=== PATIENT | female | born 1935 | race Caucasian/White ===

== ENCOUNTER → 2020-09-28 | Outpatient (CLI) | payer MEDICARE ==
--- NOTE | 2020-09-28 11:17 | RAD ---
INDICATION: Reason: LT ARM SWELLING / Spl. Instructions: / History: COMPARISON: None. FINDINGS: Focused ultrasound images obtained of the left upper arm at the region of concern. No drainable fluid collection or subcutaneous mass is seen within the soft tissues. The artery and ve in are partially seen without occlusion. IMPRESSION: * No drainable fluid collection or mass is identified. Electronically signed by: Mario Humphreys MD (09/28/2020 11:15 AM) [id number]
== END ==
LOC: US 10:53
PROVIDERS: ATTEND Family Medicine
DX: M79.89 Other specified soft tissue disorders (principal)
CPT/HCPCS: 76881